=== PATIENT | male | born 1930 | race Caucasian/White ===

== ENCOUNTER 2016-11-02 13:38 | Inpatient (IN) | payer MEDICARE, BC ==
[2016-11-02] MEDS ORDERED: Sodium Chloride 0.9% 10 ML Syringe FLUSH PRN (14:48)
[2016-11-02] MEDS ORDERED: Docusate Sodium 100 MG Cap PO PRN (14:48)
[2016-11-02] MEDS ORDERED: Enoxaparin 30 MG/0.3 ML Syringe SUBCUT SCH (15:00)
[2016-11-02] MEDS ORDERED: cefTRIAXone 1 GM Vial IVPUSH SCH (15:00)
[2016-11-02] MEDS ORDERED: Enoxaparin 40 MG/0.4 ML Syringe SUBCUT SCH (15:00)
[2016-11-02] MEDS ORDERED: Phenazopyridine 95 MG Tab PO SCH (15:00)
[2016-11-02] MEDS ORDERED: Non-Formulary Medication 1 Each (Naproxen Sodium [Aleve] 220 MG) PO PRN (15:34)
[2016-11-02] MEDS: Phenazopyridine 95 MG Tab PO SCH ×3 (15:46→21:54)
[2016-11-02] MEDS: Lactated Ringers 1,000 ML IV SCH (15:54)
[2016-11-02] MEDS: Beta-Carotene (Vitamin A) w/Vitamin C & E plus Minerals Tab PO SCH (20:10)
[2016-11-02] MEDS: Acetaminophen 325 MG Tab PO PRN (23:33)
[2016-11-03] MEDS: Temazepam 15 MG Cap PO PRN ×2 (00:12→22:43)
[2016-11-03] MEDS: Lactated Ringers 1,000 ML IV SCH ×2 (04:05→17:11)
[2016-11-03] MEDS: Levothyroxine 150 MCG Tab PO SCH (06:54)
[2016-11-03] MEDS: Phenazopyridine 95 MG Tab PO SCH ×3 (07:45→17:12)
[2016-11-03] MEDS: Beta-Carotene (Vitamin A) w/Vitamin C & E plus Minerals Tab PO SCH ×2 (07:46→19:41)
[2016-11-03] MEDS: Hydrocortisone 20 MG Tab PO SCH (07:46)
[2016-11-03] MEDS: Tamsulosin 0.4 MG Cap.ER PO SCH (07:47)
[2016-11-03] MEDS: Aspirin 81 MG Tab.EC PO SCH (07:47)
[2016-11-03] MEDS: cefTRIAXone 1 GM Vial IVPUSH SCH (08:47)
[2016-11-03] MEDS: Enoxaparin 40 MG/0.4 ML Syringe SUBCUT SCH (08:47)
--- NOTE | 2016-11-03 09:26 | PN ---
DATE: 11/03/2016 S: Bentley Garcia is in with acute UTI. He says he feels better today. O: ABDOMEN: On examination, the abdomen was soft. Some tenderness in the suprapubic region. ASSESSMENT: URINARY TRACT INFECTION. P: Continue IV antibiotics. NESS /[id number]
[2016-11-03] MEDS: Hydrocortisone 1% Oint 28 GM Tube TOP PRN ×2 (17:16→19:41)
[2016-11-03] MEDS: Acetaminophen 325 MG Tab PO PRN (21:44)
[2016-11-04] MEDS: Lactated Ringers 1,000 ML IV SCH ×2 (05:45→18:37)
[2016-11-04] MEDS: Levothyroxine 150 MCG Tab PO SCH (07:03)
[2016-11-04] MEDS: Enoxaparin 40 MG/0.4 ML Syringe SUBCUT SCH (07:52)
[2016-11-04] MEDS: Tamsulosin 0.4 MG Cap.ER PO SCH ×2 (07:53→20:06)
[2016-11-04] MEDS: Aspirin 81 MG Tab.EC PO SCH (07:53)
[2016-11-04] MEDS: cefTRIAXone 1 GM Vial IVPUSH SCH (07:53)
[2016-11-04] MEDS: Beta-Carotene (Vitamin A) w/Vitamin C & E plus Minerals Tab PO SCH ×2 (07:53→20:06)
[2016-11-04] MEDS: Phenazopyridine 95 MG Tab PO SCH (07:53)
[2016-11-04] MEDS: Hydrocortisone 20 MG Tab PO SCH (07:53)
[2016-11-04 08:49] LABS: CHLORIDE,CL 102 mEq/L (98-106); SODIUM,NA 137 mEq/L (136-145)
--- NOTE | 2016-11-04 09:24 | PN ---
DATE: 11/04/2016 S: Bentley Garcia is in with acute UTI with urinary retention. O: On examination today, NECK: Supple. CHEST: Clear. CARDIAC: Regular. ABDOMEN: Some suprapubic tenderness. ASSESSMENT: ACUTE URINARY TRACT INFECTION WITH URINARY RETENTION. P: I will start him on some Flomax 0.4 today. SOFIE/HUI /[id number]
[2016-11-04] MEDS: Phenazopyridine 95 MG Tab PO PRN (16:20)
[2016-11-05] MEDS: Levothyroxine 150 MCG Tab PO SCH (06:49)
[2016-11-05] MEDS: Phenazopyridine 95 MG Tab PO PRN ×2 (06:51→19:50)
[2016-11-05] MEDS: Lactated Ringers 1,000 ML IV SCH (06:52)
[2016-11-05] MEDS: Hydrocortisone 20 MG Tab PO SCH (08:10)
[2016-11-05] MEDS: Tamsulosin 0.4 MG Cap.ER PO SCH ×2 (08:10→19:27)
[2016-11-05] MEDS: Enoxaparin 40 MG/0.4 ML Syringe SUBCUT SCH (08:11)
[2016-11-05] MEDS: Aspirin 81 MG Tab.EC PO SCH (08:11)
[2016-11-05] MEDS: Beta-Carotene (Vitamin A) w/Vitamin C & E plus Minerals Tab PO SCH ×2 (08:11→19:26)
[2016-11-05] MEDS: cefTRIAXone 1 GM Vial IVPUSH SCH (08:13)
--- NOTE | 2016-11-05 18:36 | PCM.PN ---
- General Info Date of Service: 11/05/16 Admission Dx/Problem (Free Text): Dysuria BPH Urinary Retention Functional Status: Reports: Pain Controlled, Tolerating Diet, Ambulating, Urinating Pain Score: 0 (Pyridium helpful for dysuria) - Review of Systems General: Reports: No Symptoms HEENT: Reports: No Symptoms Pulmonary: Reports: No Symptoms Cardiovascular: Reports: No Symptoms Gastrointestinal: Reports: No Symptoms Genitourinary: Reports: Dysuria, Frequency, Burning, Pain, Retention. Denies: Incontinence, Hematuria, Flank Pain Musculoskeletal: Reports: No Symptoms Skin: Reports: No Symptoms Neurological: Reports: No Symptoms Psychiatric: Reports: No Symptoms - Patient Data Vitals - Most Recent: Last Vital Signs Temp 36.6 C 11/05/16 16:00 Pulse 82 11/05/16 16:00 Resp 16 11/05/16 16:00 BP 102/74 11/05/16 16:00 Pulse Ox 96 11/05/16 16:00 Weight - Most Recent: 69 kg I&O - Last 24 Hours: Intake & Output 11/05/16 11/05/16 11/05/16 06:59 14:59 22:59 Intake Total 980 Balance 980 Med Orders - Current: Current Medications Acetaminophen (Tylenol) 650 mg PO Q4H PRN PRN Reason: Pain (Mild 1-3)/fever Last Admin: 11/03/16 21:44 Dose: 650 mg Aspirin (Halfprin) 81 mg PO DAILY [facility] Last Admin: 11/05/16 08:11 Dose: 81 mg Ceftriaxone Sodium (Rocephin) 1 gm IVPUSH Q24H [facility] Last Admin: 11/05/16 08:13 Dose: 1 gm Docusate Sodium (Colace) 100 mg PO BID PRN PRN Reason: Constipation Enoxaparin Sodium (Lovenox) 40 mg SUBCUT Q24H [facility] Last Admin: 11/05/16 08:11 Dose: 40 mg Hydrocortisone (Cortef) 10 mg PO DAILY [facility] Last Admin: 11/05/16 08:10 Dose: 10 mg Hydrocortisone (Hydrocortisone 1% Oint) 0 gm TOP TID PRN PRN Reason: HEMORRHOID Last Admin: 11/03/16 19:41 Dose: 1 applic Lactated Ringer's (Ringers, Lactated) 1,000 mls @ 80 mls/hr IV ASDIRECTED [facility] Last Admin: 11/05/16 06:52 Dose: 80 mls/hr Levothyroxine Sodium (Levothyroxine) 75 mcg PO ACBREAKFAST [facility] Last Admin: 11/05/16 06:49 Dose: 75 mcg Magnesium Oxide (Magnesium Oxide) 250 mg PO DAILY [facility] Last Admin: 11/05/16 08:11 Dose: 250 mg Multivitamins/Minerals (Prosight) 1 tab PO BID [facility] Last Admin: 11/05/16 08:11 Dose: 1 tab Phenazopyridine HCl (Urinary Pain Relief) 190 mg PO TID PRN PRN Reason: URINARY PAIN Last Admin: 11/05/16 06:51 Dose: 190 mg Sodium Chloride (Saline Flush) 10 ml FLUSH ASDIRECTED PRN PRN Reason: Keep Vein Open Tamsulosin HCl (Flomax) 0.4 mg PO BID [facility] Last Admin: 11/05/16 08:10 Dose: 0.4 mg Temazepam (Restoril) 15 mg PO BEDTIME PRN PRN Reason: Sleep Last Admin: 11/03/16 22:43 Dose: 15 mg Discontinued Medications Ceftriaxone Sodium (Rocephin) 1 gm IVPUSH Q24H [facility] Last Admin: 11/02/16 15:48 Dose: 1 gm Enoxaparin Sodium (Lovenox) 30 mg SUBCUT Q24H [facility] Enoxaparin Sodium (Lovenox) 40 mg SUBCUT Q24H [facility] Last Admin: 11/02/16 15:52 Dose: 40 mg Multivitamins/Minerals (Prosight) 2 tab PO BID [facility] Last Admin: 11/03/16 07:46 Dose: 2 tab Non-Formulary Medication (Naproxen Sodium [Aleve]) 220 mg PO BID PRN PRN Reason: Pain Phenazopyridine HCl (Urinary Pain Relief) 200 mg PO TIDPC [facility] Stop: 11/04/16 08:31 Last Admin: 11/02/16 15:55 Dose: Not Given Phenazopyridine HCl (Urinary Pain Relief) 190 mg PO TIDPC [facility] Stop: 11/04/16 08:31 Last Admin: 11/04/16 07:53 Dose: 190 mg Tamsulosin HCl (Flomax) 0.4 mg PO DAILY [facility] Last Admin: 11/04/16 07:53 Dose: 0.4 mg - Exam General: Alert, Oriented, Cooperative, No Acute Distress HEENT: Pupils Equal, Pupils Reactive Neck: Supple Lungs: Clear to Auscultation, Normal Respiratory Effort Cardiovascular: Regular Rate, Regular Rhythm GI/Abdominal Exam: Normal Bowel Sounds, Soft, Non-Tender Back Exam: Normal Inspection Extremities: Normal Inspection, Normal Range of Motion, Non-Tender, No Pedal Edema, Normal Capillary Refill. No: Tono's Sign Peripheral Pulses: 2+: Dorsalis Pedis (L), Dorsalis Pedis (R) Skin: Warm, Dry, Intact Wound/Incisions: Dressing Dry and Intact (Saline Lock patent) Neurological: No New Focal Deficit, Normal Gait Psy/Mental Status: Alert, Normal Affect, Normal Mood - Problem List & Annotations (1) Dysuria SNOMED Code(s): 71089787 Code(s): R30.0 - DYSURIA Status: Acute Current Visit: Yes - Problem List Review Problem List Initiated/Reviewed/Updated: Yes - Assessment Assessment:: Dysuria BPH Urinary Retention - Plan Plan:: Patient anticipating discharge in the am. Continue Pyridium BID May consider Elmiron 100 mg BID Cytoscopy scheduled on November 29, 2016 F/U with PCP Dr. Chan after discharge.
[2016-11-06] MEDS: Levothyroxine 150 MCG Tab PO SCH (06:01)
[2016-11-06 07:53] VITALS: BP 106/69
[2016-11-06] MEDS: Hydrocortisone 20 MG Tab PO SCH (08:05)
[2016-11-06] MEDS: Aspirin 81 MG Tab.EC PO SCH (08:06)
[2016-11-06] MEDS: Beta-Carotene (Vitamin A) w/Vitamin C & E plus Minerals Tab PO SCH (08:06)
[2016-11-06] MEDS: Tamsulosin 0.4 MG Cap.ER PO SCH (08:06)
[2016-11-06] MEDS: cefTRIAXone 1 GM Vial IVPUSH SCH (08:07)
--- NOTE | 2016-11-06 09:40 | PCM.DCSUM1 ---
Discharge Summary - Discharge Data Discharge Date: 11/06/16 Discharge Disposition: Home, Self-Care 01 Condition: Good - Discharge Diagnosis/Problem(s) (1) Dysuria SNOMED Code(s): 62927800 ICD Code: R30.0 - DYSURIA Status: Acute Current Visit: Yes - Patient Summary/Data Consults: Consultations 11/02/16 14:48 PT Evaluation and Treatment [CONS] Routine - Patient Instructions Activity: As Tolerated, Rest and Relax Today Driving: May Drive Today Showering/Bathing: May Shower Notify Provider of: Fever, Increased Pain, Swelling and Redness, Drainage, Nausea and/or Vomiting Other/Special Instructions: F/U with Dr Chan next week. Cystoscopy as indicated by Urology-. Medications as previous prescribed. Increase fluids - Discharge Plan Home Medications: Home Meds Cholecalciferol (Vitamin D3) [Vitamin D3] 5,000 unit PO DAILY 03/27/13 [History] Fish Oil/[place]-3 Fatty Acids [Fish Oil 1,000 MG] 1 each PO DAILY 03/27/13 [ History] Tamsulosin HCl [Flomax] 0.4 mg PO DAILY #30 cap.er.24h 04/03/15 [Rx] Aspirin [Adult Low Dose Aspirin EC] 81 mg PO DAILY 09/01/15 [History] Levothyroxine Sodium [Synthroid] 75 mcg PO DAILY 09/01/15 [History] Magnesium Oxide 250 mg PO DAILY tablet 09/05/15 [Rx] Hydrocortisone 10 mg PO DAILY 11/02/16 [History] Lutein/Min/Vit C/Vit E Acetate [Ocuvite Lutein] 1 tab PO BID 11/02/16 [History] Naproxen Sodium [Aleve] 220 mg PO BID PRN 11/02/16 [History] Sulfamethoxazole/Trimethoprim [Sulfamethoxazole-Tmp Ss Tablet] 1 tab PO BID [History] Patient Handouts: Interstitial Cystitis - Patient Data Vitals - Most Recent: Last Vital Signs Temp 36.7 C 11/06/16 07:48 Pulse 66 11/06/16 07:48 Resp 20 11/06/16 07:48 BP 106/69 11/06/16 07:48 Pulse Ox 96 11/06/16 07:48 Weight - Most Recent: 69 kg Med Orders - Current: Current Medications Acetaminophen (Tylenol) 650 mg PO Q4H PRN PRN Reason: Pain (Mild 1-3)/fever Last Admin: 11/03/16 21:44 Dose: 650 mg Aspirin (Halfprin) 81 mg PO DAILY [facility] Last Admin: 11/06/16 08:06 Dose: 81 mg Ceftriaxone Sodium (Rocephin) 1 gm IVPUSH Q24H [facility] Last Admin: 11/06/16 08:07 Dose: 1 gm Docusate Sodium (Colace) 100 mg PO BID PRN PRN Reason: Constipation Enoxaparin Sodium (Lovenox) 40 mg SUBCUT Q24H [facility] Last Admin: 11/05/16 08:11 Dose: 40 mg Hydrocortisone (Cortef) 10 mg PO DAILY [facility] Last Admin: 11/06/16 08:05 Dose: 10 mg Hydrocortisone (Hydrocortisone 1% Oint) 0 gm TOP TID PRN PRN Reason: HEMORRHOID Last Admin: 11/03/16 19:41 Dose: 1 applic Levothyroxine Sodium (Levothyroxine) 75 mcg PO ACBREAKFAST [facility] Last Admin: 11/06/16 06:01 Dose: 75 mcg Magnesium Oxide (Magnesium Oxide) 250 mg PO DAILY [facility] Last Admin: 11/06/16 08:06 Dose: 250 mg Multivitamins/Minerals (Prosight) 1 tab PO BID [facility] Last Admin: 11/06/16 08:06 Dose: 1 tab Phenazopyridine HCl (Urinary Pain Relief) 190 mg PO TID PRN PRN Reason: URINARY PAIN Last Admin: 11/05/16 19:50 Dose: 190 mg Sodium Chloride (Saline Flush) 10 ml FLUSH ASDIRECTED PRN PRN Reason: Keep Vein Open Tamsulosin HCl (Flomax) 0.4 mg PO BID [facility] Last Admin: 11/06/16 08:06 Dose: 0.4 mg Temazepam (Restoril) 15 mg PO BEDTIME PRN PRN Reason: Sleep Last Admin: 11/03/16 22:43 Dose: 15 mg Discontinued Medications Ceftriaxone Sodium (Rocephin) 1 gm IVPUSH Q24H [facility] Last Admin: 11/02/16 15:48 Dose: 1 gm Enoxaparin Sodium (Lovenox) 30 mg SUBCUT Q24H [facility] Enoxaparin Sodium (Lovenox) 40 mg SUBCUT Q24H [facility] Last Admin: 11/02/16 15:52 Dose: 40 mg Lactated Ringer's (Ringers, Lactated) 1,000 mls @ 80 mls/hr IV ASDIRECTED [facility] Last Admin: 11/05/16 06:52 Dose: 80 mls/hr Multivitamins/Minerals (Prosight) 2 tab PO BID [facility] Last Admin: 11/03/16 07:46 Dose: 2 tab Non-Formulary Medication (Naproxen Sodium [Aleve]) 220 mg PO BID PRN PRN Reason: Pain Phenazopyridine HCl (Urinary Pain Relief) 200 mg PO TIDPC [facility] Stop: 11/04/16 08:31 Last Admin: 11/02/16 15:55 Dose: Not Given Phenazopyridine HCl (Urinary Pain Relief) 190 mg PO TIDPC [facility] Stop: 11/04/16 08:31 Last Admin: 11/04/16 07:53 Dose: 190 mg Tamsulosin HCl (Flomax) 0.4 mg PO DAILY [facility] Last Admin: 11/04/16 07:53 Dose: 0.4 mg *Q Meaningful Use (DIS) - VTE *Q VTE Criteria *Q: - Stroke *Q Stroke Criteria *Q: - AMI *Q AMI Criteria *Q:
--- NOTE | 2016-11-06 09:46 | PCM.PN ---
- General Info Date of Service: 11/06/16 Admission Dx/Problem (Free Text): Dysuria BPH Urinary Retention Functional Status: Reports: Pain Controlled, Tolerating Diet, Ambulating, Urinating. Denies: New Symptoms Pain Score: 0 (With BID pyridium-no urinary pain) - Review of Systems General: Reports: No Symptoms HEENT: Reports: No Symptoms, Glasses Pulmonary: Reports: No Symptoms Cardiovascular: Reports: No Symptoms Gastrointestinal: Reports: No Symptoms Genitourinary: Reports: Dysuria, Frequency, Burning, Pain, Urgency, Retention ( History but resolved with FLomax and Pyridium) Musculoskeletal: Reports: No Symptoms Skin: Reports: No Symptoms Neurological: Reports: No Symptoms Psychiatric: Reports: No Symptoms - Patient Data Vitals - Most Recent: Last Vital Signs Temp 36.7 C 11/06/16 07:48 Pulse 66 11/06/16 07:48 Resp 20 11/06/16 07:48 BP 106/69 11/06/16 07:48 Pulse Ox 96 11/06/16 07:48 Weight - Most Recent: 69 kg Med Orders - Current: Current Medications Acetaminophen (Tylenol) 650 mg PO Q4H PRN PRN Reason: Pain (Mild 1-3)/fever Last Admin: 11/03/16 21:44 Dose: 650 mg Aspirin (Halfprin) 81 mg PO DAILY [facility] Last Admin: 11/06/16 08:06 Dose: 81 mg Ceftriaxone Sodium (Rocephin) 1 gm IVPUSH Q24H [facility] Last Admin: 11/06/16 08:07 Dose: 1 gm Docusate Sodium (Colace) 100 mg PO BID PRN PRN Reason: Constipation Enoxaparin Sodium (Lovenox) 40 mg SUBCUT Q24H [facility] Last Admin: 11/05/16 08:11 Dose: 40 mg Hydrocortisone (Cortef) 10 mg PO DAILY [facility] Last Admin: 11/06/16 08:05 Dose: 10 mg Hydrocortisone (Hydrocortisone 1% Oint) 0 gm TOP TID PRN PRN Reason: HEMORRHOID Last Admin: 11/03/16 19:41 Dose: 1 applic Levothyroxine Sodium (Levothyroxine) 75 mcg PO ACBREAKFAST [facility] Last Admin: 11/06/16 06:01 Dose: 75 mcg Magnesium Oxide (Magnesium Oxide) 250 mg PO DAILY [facility] Last Admin: 11/06/16 08:06 Dose: 250 mg Multivitamins/Minerals (Prosight) 1 tab PO BID [facility] Last Admin: 11/06/16 08:06 Dose: 1 tab Phenazopyridine HCl (Urinary Pain Relief) 190 mg PO TID PRN PRN Reason: URINARY PAIN Last Admin: 11/05/16 19:50 Dose: 190 mg Sodium Chloride (Saline Flush) 10 ml FLUSH ASDIRECTED PRN PRN Reason: Keep Vein Open Tamsulosin HCl (Flomax) 0.4 mg PO BID [facility] Last Admin: 11/06/16 08:06 Dose: 0.4 mg Temazepam (Restoril) 15 mg PO BEDTIME PRN PRN Reason: Sleep Last Admin: 11/03/16 22:43 Dose: 15 mg Discontinued Medications Ceftriaxone Sodium (Rocephin) 1 gm IVPUSH Q24H [facility] Last Admin: 11/02/16 15:48 Dose: 1 gm Enoxaparin Sodium (Lovenox) 30 mg SUBCUT Q24H [facility] Enoxaparin Sodium (Lovenox) 40 mg SUBCUT Q24H [facility] Last Admin: 11/02/16 15:52 Dose: 40 mg Lactated Ringer's (Ringers, Lactated) 1,000 mls @ 80 mls/hr IV ASDIRECTED [facility] Last Admin: 11/05/16 06:52 Dose: 80 mls/hr Multivitamins/Minerals (Prosight) 2 tab PO BID [facility] Last Admin: 11/03/16 07:46 Dose: 2 tab Non-Formulary Medication (Naproxen Sodium [Aleve]) 220 mg PO BID PRN PRN Reason: Pain Phenazopyridine HCl (Urinary Pain Relief) 200 mg PO TIDPC [facility] Stop: 11/04/16 08:31 Last Admin: 11/02/16 15:55 Dose: Not Given Phenazopyridine HCl (Urinary Pain Relief) 190 mg PO TIDPC [facility] Stop: 11/04/16 08:31 Last Admin: 11/04/16 07:53 Dose: 190 mg Tamsulosin HCl (Flomax) 0.4 mg PO DAILY [facility] Last Admin: 11/04/16 07:53 Dose: 0.4 mg - Exam General: Alert, Oriented, Cooperative, No Acute Distress HEENT: Pupils Equal, Pupils Reactive, EOMI, Mucous Membr. Moist/[place] Neck: Supple, Trachea Midline Lungs: Clear to Auscultation, Normal Respiratory Effort Cardiovascular: Regular Rate, Regular Rhythm GI/Abdominal Exam: Soft, Non-Tender, No Distention (Male) Exam: Deferred Back Exam: Normal Inspection Extremities: Normal Inspection, Normal Range of Motion, Non-Tender, No Pedal Edema, Normal Capillary Refill Peripheral Pulses: 2+: Radial (L), Radial (R), Posterior Tibial (L), Posterior Tibial (R), Dorsalis Pedis (L), Dorsalis Pedis (R) Skin: Warm, Dry, Intact Wound/Incisions: Dressing Dry and Intact (IV site WNL) Neurological: No New Focal Deficit Psy/Mental Status: Alert, Normal Affect, Normal Mood - Problem List & Annotations (1) Dysuria SNOMED Code(s): 18445050 Code(s): R30.0 - DYSURIA Status: Acute Current Visit: Yes (2) Interstitial cystitis SNOMED Code(s): 806577422 Code(s): N30.10 - INTERSTITIAL CYSTITIS (CHRONIC) WITHOUT HEMATURIA Status : Acute Current Visit: Yes - Problem List Review Problem List Initiated/Reviewed/Updated: Yes - Assessment Assessment:: Dysuria BPH Urinary Retention Interstitial cystitis - Plan Plan:: Patient anticipating discharge in the am. Continue Pyridium BID May consider Elmiron 100 mg BID Cytoscopy scheduled on November 29, 2016 F/U with PCP Dr. Chan after discharge. 11-06-2016 Discharge to home as indicated. Continue medications as per hospital stay. Discontinue antibiotics as urine culture negative. Tke home sheet reviewed regarding interstitial cystitis and diet- Consider Elmiron 100 mg BID F/U with PCP this week Urology F/U as indicated.
[2016-11-06] MEDS: Enoxaparin 40 MG/0.4 ML Syringe SUBCUT SCH (10:16)
== END 2016-11-06 12:55 | disposition home or self-care (01) | DRG 690 ==
LOC: CC.MS 13:38 → UNDOADMIN 13:38 → CC.MS 14:49
PROVIDERS: ADMIT General Practice; ATTEND General Practice
DX: N39.0 Urinary tract infection, site not specified (principal); E27.1 Primary adrenocortical insufficiency; N40.1 Benign prostatic hyperplasia with lower urinary tract symptoms; R33.9 Retention of urine, unspecified; E03.9 Hypothyroidism, unspecified; R53.83 Other fatigue; M19.90 Unspecified osteoarthritis, unspecified site; C67.9 Malignant neoplasm of bladder, unspecified; I25.10 Atherosclerotic heart disease of native coronary artery without angina pectoris; I10 Essential (primary) hypertension; E78.5 Hyperlipidemia, unspecified; Z88.1 Allergy status to other antibiotic agents; Z79.82 Long term (current) use of aspirin; Z79.899 Other long term (current) drug therapy
CPT/HCPCS: 36415; 80048; 80053; 81001; 82533; 83735; 84443; 85025; 86140; 87086; 97110-GP; 97161-GP; A9270-GY; J0696; J1650; J7120

== ENCOUNTER 2017-06-30 17:31 | Emergency (ER) | payer MEDICARE, BC ==
[2017-06-30] MEDS: Lidocaine 1% 20 ML MDV INJECT ONE (17:52)
[2017-06-30] MEDS: Diphtheria,Pertussis(Acell),Tetanus Vaccine 0.5 ML Syringe IM ONE (18:01)
[2017-06-30 18:12] VITALS: BP 129/86
[2017-06-30] MEDS: Bacitracin/Neomycin/Polymyxin B Oint 0.9 GM U/D Packet TOP ONE (18:25)
--- NOTE | 2017-06-30 18:33 | EDM.PDOC ---
ED HPI GENERAL MEDICAL PROBLEM - General Chief Complaint: Laceration Stated Complaint: laceration Time Seen by Provider: 06/30/17 17:45 - History of Present Illness INITIAL COMMENTS - FREE TEXT/NARRATIVE: Bentley is a pleasant 87 year old male who presents to the ED with c/o laceration to his right hand. He reports that he tripped and fell after missing a step around 1400 today. He does not know how or what he cut his hand on. He reports he just noticed the blood. Originally had it bandaged and then realized he probably needed sutures so he presented here from [facility]. He denies any numbness or tingling. He is able to move his thumb without difficulty. Denies any LOC. Denies any dizziness or headache. He is alert and oriented. Onset: Today, Sudden Onset Date: 06/30/17 Onset Time: 14:00 Duration: Constant Location: Reports: Upper Extremity, Right Improves with: Reports: None Worsens with: Reports: None Associated Symptoms: Reports: No Other Symptoms. Denies: Confusion, Chest Pain , Cough, cough w sputum, Diaphoresis, Fever/Chills, Headaches, Loss of Appetite , Malaise, Nausea/Vomiting, Rash, Seizure, Shortness of Breath, Syncope, Weakness Treatments RECREATION ACTIVITIES COORDINATOR: Reports: Dressing(s), NSAIDS Right 1-Thumb Pain Score (Numeric/FACES): 7 - Related Data Allergies Allergy/AdvReac Type Severity Reaction Status Date / Time ciprofloxacin HCl Allergy Rash Verified 06/30/17 17:36 [facility] Home Meds: Home Meds Cholecalciferol (Vitamin D3) [Vitamin D3] 5,000 unit PO DAILY 03/27/13 [History] Fish Oil/[place]-3 Fatty Acids [Fish Oil 1,000 MG] 1 each PO DAILY 03/27/13 [ History] Aspirin [Adult Low Dose Aspirin EC] 81 mg PO DAILY 09/01/15 [History] Levothyroxine Sodium [Synthroid] 75 mcg PO DAILY 09/01/15 [History] Magnesium Oxide 250 mg PO DAILY tablet 09/05/15 [Rx] Lutein/Min/Vit C/Vit E Acetate [Ocuvite Lutein] 2 tab PO BID 11/02/16 [History] Naproxen Sodium [Aleve] 220 mg PO BID PRN 11/02/16 [History] Phenazopyridine [Urinary Pain Relief] 190 mg PO TID PRN tablet 11/06/16 [Rx] Tamsulosin [Flomax] 0.4 mg PO BID cap.er 11/06/16 [Rx] Past Medical History HEENT History: Reports: Hard of Hearing Cardiovascular History: Reports: Stents Other Cardiovascular History: abdominal aortic aneurysm - currently being monitored Respiratory History: Reports: Asthma, SOB Genitourinary History: Reports: Retention, Urinary Other Genitourinary History: bladder cancer Musculoskeletal History: Reports: Arthritis Endocrine/Metabolic History: Reports: Hypothyroidism Oncologic (Cancer) History: Reports: Bladder, Other (See Below) Other Oncologic History: skin cancer on the nose Dermatologic History: Reports: Other (See Below) Other Dermatologic History: basal cell removal - Infectious Disease History Infectious Disease History: Reports: Shingles - Past Surgical History HEENT Surgical History: Reports: Cataract Surgery Cardiovascular Surgical History: Reports: Coronary Artery Stent Respiratory Surgical History: Reports: None GI Surgical History: Reports: Appendectomy, Colonoscopy, Hernia, Inguinal, Hernia Repair/Other Other Male Surgeries/Procedures: tumor removal in the bladder Musculoskeletal Surgical History: Reports: Joint Replacement, Knee Replacement Social & Family History - Family History Family Medical History: Noncontributory - Tobacco Use Smoking Status *Q: Never Smoker - Caffeine Use Caffeine Use: Reports: None - Recreational Drug Use Recreational Drug Use: No ED ROS GENERAL - Review of Systems Review Of Systems: ROS reveals no pertinent complaints other than HPI. ED EXAM, SKIN/RASH Exam: See Below Exam Limited By: No Limitations General Appearance: Alert, WD/WN, No Apparent Distress Eye Exam: Bilateral Eye: EOMI, PERRL Respiratory/Chest: No Respiratory Distress, Lungs Clear, Normal Breath Sounds, No Accessory Muscle Use, Chest Non-Tender Cardiovascular: Normal Peripheral Pulses, Regular Rate, Rhythm, No Edema, No Gallop, No JVD, No Murmur, No Rub Skin: Wound/Incision Location, Skin: Upper Extremity, Right Associated features: Tenderness, Swelling Comments: 3.5 cm jagged laceration to base of right thumb, bleeding controlled ED SKIN PROCEDURES - Laceration/Wound Repair Right Proximal Other Lac/Wound length In cm: 3.5 Appearance: Subcutaneous Distal NVT: Neuro & Vascular Intact Anesthetic Type: Local Local Anesthesia - Lidocaine (Xylocaine): 1% Plain Local Anesthetic Volume: 5cc Skin Prep: Chlorhexidine (Hibiciens) Saline Irrigation (cc's): 15 Exploration/Debridement/Repair: Wound Explored, Minimal Debridement Closed with: Sutures Suture Size: 4-0 # of Sutures: 9 Suture Type: Nylon Progress/Comments: Jagged edges to laceration. Wound repaired without complication. Patient tolerated well. Course - Vital Signs Last Recorded V/S: Last Vital Signs Temp 97.8 F 06/30/17 17:32 Pulse 88 06/30/17 18:11 Resp 18 06/30/17 17:32 BP 129/86 06/30/17 18:11 Pulse Ox 92 L 06/30/17 17:32 - Orders/Labs/Meds Orders: Active Orders 24 hr Category Date Time Status Vaccines to be Administered [RC] PER UNIT ROUTINE Care 06/30/17 17:58 Active Meds: Medications Discontinued Medications Generic Name Dose Route Start Last Admin Trade Name Freq PRN Reason Stop Dose Admin Diphtheria/Tetanus/Acell Pertussis 0.5 ml 06/30/17 17:57 06/30/17 18:01 Adacel IM 06/30/17 17:58 0.5 ml .ONCE ONE Administration Lidocaine HCl 20 ml 06/30/17 17:41 06/30/17 17:52 Xylocaine 1% INJECT 06/30/17 17:42 20 ml ONETIME ONE Administration Neomycin/Polymyxin/Bacitracin 1 each 06/30/17 18:22 06/30/17 18:25 Triple Antibiotic Oint TOP 06/30/17 18:23 1 each ONETIME ONE Administration Departure - Departure Time of Disposition: 18:28 Disposition: Home, Self-Care 01 Condition: Good Clinical Impression: Laceration of hand Qualifiers: Encounter type: initial encounter Foreign body presence: without foreign body Laterality: right Qualified Code(s): S61.411A - Laceration without foreign body of right hand, initial encounter - Discharge Information Instructions: Laceration Care, Adult, Stitches, Gail, or Adhesive Wound Closure, [id number] Referrals: Dudley Chan MD [Primary Care Provider] - Additional Instructions: Follow up for suture removal Friday 07/07 at 10:30 am Keep wound covered next 24 hours. After that may leave open to air. Keep hand clean Apply Neosporin twice daily - My Orders Last 24 Hours: My Active Orders 06/30/17 17:58 Vaccines to be Administered [RC] PER UNIT ROUTINE - Assessment/Plan Last 24 Hours: My Active Orders 06/30/17 17:58 Vaccines to be Administered [RC] PER UNIT ROUTINE
== END 2017-06-30 18:38 | disposition home or self-care (01) ==
LOC: CC.ED 17:31
DX: S61.011A Laceration without foreign body of right thumb without damage to nail, initial encounter (principal); J45.909 Unspecified asthma, uncomplicated; E03.9 Hypothyroidism, unspecified; Z23 Encounter for immunization; Z79.82 Long term (current) use of aspirin; Z79.899 Other long term (current) drug therapy; Z88.1 Allergy status to other antibiotic agents; W01.198A Fall on same level from slipping, tripping and stumbling with subsequent striking against other object, initial encounter
CPT/HCPCS: 12002; 90471; 90715; 99282; 99283